=== PATIENT | female | born 1980 | race Two or more races ===

== ENCOUNTER → 2018-10-21 | Outpatient (CLI) | payer MEDICAID ==
--- NOTE | 2018-10-21 13:55 | RADIOLOGY REPORT (SQ) ---
EXAM DESCRIPTION: U/S [id number] TRNABD 1GES W/ODOP COMPLETED DATE/TIME: 10/21/2018 1:36 pm REASON FOR STUDY: ENCTR FOR SUPERVISION OF OTHER NORMAL , 1ST TRIMESTER (Z34.81) Z34.81 EN COUNTER FOR SUPRVSN OF NORMAL , FIRST TRIM COMPARISON: None. TECHNIQUE: Transabdominal static and realtime grayscale images acquired of the pelvis. Additional se lected spectral and color Doppler images recorded. All images stored on PACs. [facility] [place] Not available. CLINICAL DATES: ARLENE: 05/03/2019. EGA: 12 weeks 2 days LIMITATIONS: None. FINDINGS: FETUS: Single Living intrauterine . ULTRASOUND EGA: 13 weeks 2 days ULTRASOUND ARLENE: 04/26/2019 EFW: Not applicable less than 20 weeks. CRL: 7.0 cm FHR: 160 beats per minute. SURVEY: No visualized anomalies. AMNIOTIC FLUID: Adequate amount. PLACENTA: Not yet developed due to early gestation. SUBCHORIONIC BLEED: No. SIZE OF BLEED: Not applicable. UTERUS: The uterus measures 12.1 x 11.4 x 9.8 cm. No masses. No anomalies. CERVICAL LENGTH: 2.2 cm Closed. RIGHT ADNEXA: Not visualized due to overlying bowel gas. LEFT ADNEXA: Not visualized due to overlying bowel gas. FREE FLUID: None. OTHER: No other significant finding. IMPRESSION: LIVING INTRAUTERINE . EGA: 13 weeks 2 days Trimester of : First - 0 to 13 weeks. TECHNICAL DOCUMENTATION: JOB ID: [id number] [employer]- All Rights Reserved rev Reading location - IP/workstation name: [email or web address]
== END ==
LOC: RAD 12:49
PROVIDERS: ATTEND Midwife
DX: Z34.81 Encounter for supervision of other normal pregnancy, first trimester (principal)
CPT/HCPCS: 76801

== ENCOUNTER 2018-10-29 08:25 | Emergency (ER) | payer MEDICAID ==
[2018-10-29 09:38] LABS: APPEARANCE,URINE SLIGHTLY-CLOUDY; BILIRUBIN,URINE NEGATIVE (NEGATIVE); COLOR,URINE YELLOW; GLUCOSE, URINE NEGATIVE (NEGATIVE); KETONES,URINE NEGATIVE (NEGATIVE); LEUKOCYTE ESTERASE,URINE NEGATIVE (NEGATIVE); NITRITE,URINE NEGATIVE (NEGATIVE); PROTEIN,URINE NEGATIVE (NEGATIVE); URINE SPECIFIC GRAVITY 1.012; UROBILINOGEN,URINE NEGATIVE mg/dL (<2.0)
--- NOTE | 2018-10-29 10:18 | ER Document Report ---
ED General - General Chief Complaint: Abdominal Pain Stated Complaint: ABDOMINAL PAIN Time Seen by Provider: 10/29/18 09:55 Primary Care Provider: DONALD MANZO MD [ACTIVE STAFF] - Follow up in 3-5 days (or sooner if needed) Mode of Arrival: Ambulatory Information source: Patient TRAVEL OUTSIDE OF THE [place] IN LAST 30 DAYS: No - HPI Notes: 38-year-old female 3 para 3 who is approximately 14 weeks with her child presents to the ED for concerns of suprapubic pain, reports burning with urination x 9 hours ago. Last bowel movement was yesterday, was seen by her TRUST MANAGER ASSISTANT at the health department times 4 days ago, patient was concerned because baby's heart rate cannot be auscultated at that time, pt stated that OBGYN was not concerned. Patient did have a bowel movement this morning, was firm. No melena. pt is taking prenatals. Denies any fevers or chills, no nausea or vomiting, no diarrhea. No rashes. Recent travel, no new medications no new foods. Denies any vaginal bleeding or pelvic pain. No chest pain or shortness of breath, no bowel or bladder dysfunction, no no weakness, speech changes, neck pain, sore throat. Patient states they did check a urinalysis times 4 days ago, did not show any abnormalities however patient's symptoms did not start until yesterday. She did have an appendectomy as well as 2 action within the last 6 years. - Related Data Allergies/Adverse Reactions: oxycodone [Oxycodone] Allergy (Verified 10/29/18 08:26) Past Medical History - General Information source: Patient, Relative - Social History Smoking Status: Current Some Day Smoker Chew tobacco use (# tins/day): No Frequency of alcohol use: None Drug Abuse: None Family History: Reviewed & Not Pertinent Patient has suicidal ideation: No Patient has homicidal ideation: No Renal/ Medical History: Denies: Hx Peritoneal Dialysis Past Surgical History: Reports: Hx Breast Surgery - reduction 02/12/12, Hx Section - X 2 Review of Systems - Review of Systems Constitutional: No symptoms reported EENT: No symptoms reported Cardiovascular: No symptoms reported Respiratory: No symptoms reported Gastrointestinal: See HPI Genitourinary: No symptoms reported Female Genitourinary: No symptoms reported Musculoskeletal: No symptoms reported Skin: No symptoms reported Hematologic/Lymphatic: No symptoms reported Neurological/Psychological: No symptoms reported Physical Exam - Vital signs Vitals: Temp Pulse Resp BP Pulse Ox 97.8 F 82 18 130/72 H 98 10/29/18 08:30 10/29/18 08:30 10/29/18 08:30 10/29/18 08:30 10/29/18 08:30 - Notes Notes: PHYSICAL EXAMINATION: GENERAL: Well-appearing, well-nourished and in no acute distress. HEAD: Atraumatic, normocephalic. EYES: Pupils equal round and reactive to light, extraocular movements intact, conjunctiva are normal. ENT: Nares patent, oropharynx clear without exudates. Moist mucous membranes. NECK: Normal range of motion, supple without lymphadenopathy LUNGS: Breath sounds clear to auscultation bilaterally and equal. No wheezes rales or rhonchi. HEART: Regular rate and rhythm without murmurs ABDOMEN: Soft, nontender, nondistended abdomen. fundas proximal to suprapubic area No guarding, no rebound. No masses appreciated. suprapubic pain, no cva tenderness bilaterally Female : deferred Musculoskeletal: Normal range of motion, no pitting or edema. No cyanosis. NEUROLOGICAL: Cranial nerves grossly intact. Normal speech, normal gait. Normal sensory, motor exams PSYCH: Normal mood, normal affect. SKIN: Warm, Dry, normal turgor, no rashes or lesions noted. Course - Re-evaluation Re-evalutation: 10/29/18 12:05 Afebrile vitals stable no distress, patient's ECG well over 86,000, urinalysis negative for UTI, no proteinuria, hematuria or ketones, however patient is symptomatic for cystitis. . heart tones 150's. cbc, cmp, urinalysis unremarkable per patient appears to be symptomatic with dysuria. Patient eating and drinking without issues, on reevaluation patient states she continues to feel fine, was mostly concerned about will do not being able to find heart tones 4 days ago TRUST MANAGER ASSISTANT appointment at health department. Pt deferred vaginal exam. patient has been tolerating oral hydration while in ED. Discussed with patient to follow-up with TRUST MANAGER ASSISTANT within the next 3-5 days, she experiences any fevers, vaginal bleeding, vaginal pain, pelvic pain, abdominal pain, or worsening symptoms to return to the ED immediately. After performing a Medical Screening Examination, I estimate there is LOW risk for ACUTE APPENDICITIS, BOWEL OBSTRUCTION, ACUTE CHOLECYSTITIS, PERFORATED DIVERTICULITIS, INCARCERATED HERNIA, PANCREATITIS, PELVIC INFLAMMATORY DISEASE, PERFORATED ULCER, ECTOPIC , or TUBO-OVARIAN ABSCESS, thus I consider the discharge disposition reasonable. Also, there is no evidence or peritonitis, sepsis, or toxicity. I have reevaluated this patient multiple times and no significant life threatening changes are noted. The patient and I have discussed the diagnosis and risks, and we agree with discharging home with close follow-up with the understanding that symptoms and presentations can change. We also discussed returning to the Emergency Department immediately if new or worsening symptoms occur. We have discussed the symptoms which are most concerning (e.g., bloody stool, fever, changing or worsening pain, vomiting) that necessitate immediate return. All questions and concerns answered by this provider. - Vital Signs Vital signs: Temp Pulse Resp BP Pulse Ox 97.8 F 83 17 128/77 H 99 10/29/18 12:54 10/29/18 12:54 10/29/18 12:54 10/29/18 12:54 10/29/18 12:54 - Laboratory Result Diagrams: 10/29/18 10:30 10/29/18 10:30 Laboratory results interpreted by me: 10/29/18 10/29/18 10:30 10:30 Hgb 11.9 L Hct 34.6 L MCV 76 L MCH 26.1 L RDW 14.6 H Chloride 109 H BUN 6 L Creatinine 0.49 L ALT < 6 L Beta HCG, Quant 59719.00 H Discharge - Discharge Clinical Impression: Microcytic anemia, , Dysuria Condition: Stable Disposition: HOME, SELF-CARE Instructions: ([facility]) Additional Instructions: If symptomatic for this cystitis, will treat empirically with antibiotics, heart tones today auscultated and is a healthy rate. Continue taking vitamins. Follow-up with TRUST MANAGER ASSISTANT within 3-5 days or sooner if needed. Increase oral hydration. If any symptoms recur, fever, chills, abdominal pain, vomiting, vaginal pain, vaginal bleeding diarrhea, etc, return to the ED immediately. Diet. Take antibiotics for 3 days, increase oral hydration Return immediately for any new or worsening symptoms. Follow up with primary care provider, call tomorrow to make followup appointment. Prescriptions: Nitrofurantoin Macrocrystal [Macrodantin] 100 mg PO BID #6 capsule Forms: Return to Work Referrals: DONALD MANZO MD [ACTIVE STAFF] - Follow up in 3-5 days (or sooner if needed)
[2018-10-29 10:49] LABS: ABSOLUTE EOSINOPHILS # (AUTO) 0.1 10^3/uL (0.0-0.6); ABSOLUTE LYMPHOCYTES (AUTO) 1.3 10^3/uL (0.5-4.7); ABSOLUTE MONOCYTES (AUTO) 0.5 10^3/uL (0.1-1.4); ABSOLUTE NEUT (AUTO) 6.2 10^3/uL (1.7-8.2); BASOPHILS % (AUTO) 0.1 % (0-2); EOSINOPHILS % (AUTO) 0.9 % (0-6); HEMATOCRIT 34.6 % (36.0-47.0); HEMOGLOBIN 11.9 g/dL (12.0-15.5); LYMPHOCYTES % (AUTO) 16.1 % (13-45); MEAN CORPUSCULAR HEMOGLOBIN 26.1 pg (27.0-33.4); MEAN CORPUSCULAR HGB CONC 34.5 g/dL (32.0-36.0); MEAN CORPUSCULAR VOLUME 76 fl (80-97); MONOCYTES % (AUTO) 6.1 % (3-13); PLATELET COUNT 255 10^3/uL (150-450); RED BLOOD COUNT 4.57 10^6/uL (3.72-5.28); RED CELL DISTRIBUTION WIDTH 14.6 % (11.5-14.0); SEGMENTED NEUTROPHILS % (AUTO) 76.8 % (42-78); TOTAL CELLS COUNTED % (AUTO) 100 %; WHITE BLOOD COUNT 8.1 10^3/uL (4.0-10.5)
[2018-10-29 11:15] LABS: ALANINE AMINOTRANSFERASE < 6 U/L (9-52); ALBUMIN 3.8 g/dL (3.5-5.0); ALKALINE PHOSPHATASE 67 U/L (38-126); ANION GAP 7 (5-19); ASPARTATE AMINO TRANSFERASE 15 U/L (14-36); BILIRUBIN,DIRECT 0.2 mg/dL (0.0-0.4); BILIRUBIN,TOTAL 0.3 mg/dL (0.2-1.3); BLOOD UREA NITROGEN 6 mg/dL (7-20); CALCIUM 9.7 mg/dL (8.4-10.2); CARBON DIOXIDE 22 mmol/L (22-30); CHLORIDE 109 mmol/L (98-107); GLUCOSE 86 mg/dL (75-110); LIPASE 55.8 U/L (23-300); POTASSIUM 4.3 mmol/L (3.6-5.0); SODIUM 138.4 mmol/L (137-145); TOTAL PROTEIN 6.9 g/dL (6.3-8.2)
[2018-10-29 12:56] VITALS: BP 128/77
== END 2018-10-29 12:56 | disposition home or self-care (01) ==
LOC: ER 08:25
DX: O99.012 Anemia complicating pregnancy, second trimester (principal); D50.9 Iron deficiency anemia, unspecified; O26.892 Other specified pregnancy related conditions, second trimester; R30.0 Dysuria; R10.9 Unspecified abdominal pain; R10.30 Lower abdominal pain, unspecified; R30.9 Painful micturition, unspecified; O99.332 Smoking (tobacco) complicating pregnancy, second trimester; Z3A.14 14 weeks gestation of pregnancy
CPT/HCPCS: 36415; 80053; 81001; 83690; 84702; 85025; 87086; 99284

== ENCOUNTER 2019-01-05 16:03 | Outpatient (CLI) | payer MEDICAID ==
[2019-01-05 16:37] LABS: APPEARANCE,URINE SLIGHTLY-CLOUDY; BILIRUBIN,URINE NEGATIVE (NEGATIVE); COLOR,URINE YELLOW; GLUCOSE, URINE NEGATIVE (NEGATIVE); KETONES,URINE NEGATIVE (NEGATIVE); LEUKOCYTE ESTERASE,URINE SMALL (NEGATIVE); NITRITE,URINE NEGATIVE (NEGATIVE); PROTEIN,URINE NEGATIVE (NEGATIVE); URINE SPECIFIC GRAVITY 1.008; UROBILINOGEN,URINE NEGATIVE mg/dL (<2.0)
[2019-01-05 16:39] LABS: ABSOLUTE EOSINOPHILS # (AUTO) 0.1 10^3/uL (0.0-0.6); ABSOLUTE LYMPHOCYTES (AUTO) 1.4 10^3/uL (0.5-4.7); ABSOLUTE MONOCYTES (AUTO) 0.5 10^3/uL (0.1-1.4); ABSOLUTE NEUT (AUTO) 8.1 10^3/uL (1.7-8.2); BASOPHILS % (AUTO) 0.1 % (0-2); EOSINOPHILS % (AUTO) 0.8 % (0-6); HEMATOCRIT 34.8 % (36.0-47.0); HEMOGLOBIN 11.8 g/dL (12.0-15.5); LYMPHOCYTES % (AUTO) 13.6 % (13-45); MEAN CORPUSCULAR HEMOGLOBIN 25.9 pg (27.0-33.4); MEAN CORPUSCULAR HGB CONC 33.8 g/dL (32.0-36.0); MEAN CORPUSCULAR VOLUME 77 fl (80-97); MONOCYTES % (AUTO) 4.5 % (3-13); PLATELET COUNT 299 10^3/uL (150-450); RED BLOOD COUNT 4.54 10^6/uL (3.72-5.28); RED CELL DISTRIBUTION WIDTH 14.4 % (11.5-14.0); TOTAL CELLS COUNTED % (AUTO) 100 %
[2019-01-05 16:49] LABS: URINE BARBITURATES SCREEN NEGATIVE; URINE COCAINE SCREEN NEGATIVE; URINE MARIJUANA (THC) SCREEN NEGATIVE; URINE METHADONE SCREEN NEGATIVE
[2019-01-05 16:51] LABS: URINE AMPHETAMINES SCREEN NEGATIVE; URINE BENZODIAZEPINES SCREEN NEGATIVE
[2019-01-05 16:52] LABS: URINE PHENCYCLIDINE SCREEN NEGATIVE
== END 2019-01-05 17:13 | disposition home or self-care (01) ==
LOC: LC 16:03
PROVIDERS: ATTEND Obstetrics & Gynecology
PROC: 4A1HXCZ Monitoring of Products of Conception, Cardiac Rate, External Approach (ICD-10-PCS; principal; 2019-01-05)
DX: O47.02 False labor before 37 completed weeks of gestation, second trimester (principal); Z3A.24 24 weeks gestation of pregnancy
CPT/HCPCS: 36415; 80307; 81001; 85025

== ENCOUNTER → 2019-02-26 | Outpatient (CLI) | payer MEDICAID ==
[2019-02-26 12:17] LABS: APPEARANCE,URINE SLIGHTLY-CLOUDY; BILIRUBIN,URINE NEGATIVE (NEGATIVE); COLOR,URINE YELLOW; GLUCOSE, URINE NEGATIVE (NEGATIVE); KETONES,URINE TRACE mg/dL (NEGATIVE); LEUKOCYTE ESTERASE,URINE LARGE (NEGATIVE); NITRITE,URINE NEGATIVE (NEGATIVE); PROTEIN,URINE NEGATIVE (NEGATIVE); URINE SPECIFIC GRAVITY 1.011; UROBILINOGEN,URINE NEGATIVE mg/dL (<2.0)
[2019-02-26 12:40] LABS: URINE AMPHETAMINES SCREEN NEGATIVE; URINE BARBITURATES SCREEN NEGATIVE; URINE BENZODIAZEPINES SCREEN NEGATIVE; URINE COCAINE SCREEN NEGATIVE; URINE MARIJUANA (THC) SCREEN NEGATIVE; URINE METHADONE SCREEN NEGATIVE; URINE PHENCYCLIDINE SCREEN NEGATIVE
--- NOTE | 2019-02-26 14:34 | Non Stress Test Report ---
Non Stress Test Datetime Report Generated by CPN: 02/26/2019 14:34 DEMOGRAPHIC EGA NST: 31.4 INDICATION Indication for Study: Decreased Movement VITAL SIGNS Temperature - NST: 98.1 MONITORING Monitor Explained: Monitor Explained; Test Explained; Patient Verbalized Understanding Time on Monitor: 02/26/2019 11:50 Time off Monitor: 02/26/2019 13:11 NST Duration: 81 NST INTERVENTIONS NST Interventions: PO Hydration; Reposition Patient BABY A: [id number] BABY A Movement : Present Contraction Frequency : 0 FHR Baseline : 140 Accelerations : 15X15 Decelerations : None Variability : Moderate 6-25bpm NST Review: Meets Criteria for Reactive NST NST Review and Verified By : Dominga Ocasio C NST Results: Reactive NST REPORT Report Trigger: Send Report
== END ==
LOC: LC 11:42
PROVIDERS: ATTEND Obstetrics & Gynecology
PROC: 4A1HXCZ Monitoring of Products of Conception, Cardiac Rate, External Approach (ICD-10-PCS; principal; 2019-02-26)
DX: O36.8130 Decreased fetal movements, third trimester, not applicable or unspecified (principal); Z3A.31 31 weeks gestation of pregnancy
CPT/HCPCS: 59025; 80307; 81001

== ENCOUNTER 2019-03-19 18:41 | Outpatient (CLI) | payer MEDICAID | END 2019-03-19 19:57 | disposition home or self-care (01) | LOC: LC 18:41 | PROVIDERS: ATTEND Obstetrics & Gynecology | PROC: 4A1HXCZ Monitoring of Products of Conception, Cardiac Rate, External Approach (ICD-10-PCS; principal; 2019-03-19) | DX: O09.523 Supervision of elderly multigravida, third trimester (principal); Z3A.34 34 weeks gestation of pregnancy | CPT/HCPCS: 59025 ==

== ENCOUNTER → 2019-03-22 | Outpatient (CLI) | payer MEDICAID ==
--- NOTE | 2019-03-22 18:52 | Non Stress Test Report ---
Non Stress Test Datetime Report Generated by CPN: 03/22/2019 18:52 DEMOGRAPHIC EGA NST: 35.0 EGA NST: 34.4 INDICATION Indication for Study: Ordered by Provider Indication for Study: Ordered by Provider VITAL SIGNS Temperature - NST: 98.3 Pulse - NST: 78 RESP - NST: 18 NBPSYS NST: 115 NBPDIA NST: 67 MONITORING Monitor Explained: Monitor Explained; Test Explained; Patient Verbalized Understanding Monitor Explained: Monitor Explained; Test Explained; Patient Verbalized Understanding Time on Monitor: 03/22/2019 17:26 Time on Monitor: 03/19/2019 19:15 Time off Monitor: 03/22/2019 18:26 Time off Monitor: 03/19/2019 19:50 NST Duration: 60 NST Duration: 35 NST INTERVENTIONS NST Interventions: PO Hydration; Reposition Patient NST Interventions: PO Hydration Physician Notified NST: C LANDY, CNM REVIEWED STRIP Physician Notified NST: Younger BABY A: [id number] BABY A Movement : Present Movement : Present Contraction Frequency : rare Contraction Frequency : Occasional FHR Baseline : 150 FHR Baseline : 150 Accelerations : 15X15 Accelerations : 15X15 Decelerations : None Decelerations : None Variability : Moderate 6-25bpm Variability : Moderate 6-25bpm NST Review: Meets Criteria for Reactive NST NST Review: Meets Criteria for Reactive NST NST Review and Verified By : Karley Fields RN NST Review and Verified By : DEEPALI Man NST Results: Reactive NST Results: Reactive NST REPORT Report Trigger: Send Report
== END ==
LOC: LC 17:13
PROVIDERS: ATTEND Obstetrics & Gynecology
DX: O09.523 Supervision of elderly multigravida, third trimester (principal); Z3A.35 35 weeks gestation of pregnancy

== ENCOUNTER 2019-04-07 07:35 | Inpatient (IN) | payer MEDICAID ==
[2019-04-07] MEDS ORDERED: CEFAZOLIN 1 GM/D5W RTU 2 GM/100 ML RTUPB IV ONE (07:49)
[2019-04-07] MEDS ORDERED: CITRIC ACID/SODIUM CITRATE ORAL SOLN 15 ML UDCUP ONE (07:49)
[2019-04-07] MEDS ORDERED: OXYTOCIN 10 UNIT/ML VIAL ONE (08:08)
[2019-04-07] MEDS ORDERED: ONDANSETRON HCL INJ/PF 4 MG/2 ML SDV ONE (08:09)
[2019-04-07] MEDS ORDERED: OXYTOCIN/NORMAL SALINE 20 UNIT/1,000 ML RTUINJ ONE (08:09)
[2019-04-07] MEDS ORDERED: MORPHINE SULFATE 10 MG/ML INJ ONE (08:09)
[2019-04-07] MEDS ORDERED: MIDAZOLAM 2 MG/2 ML INJ ONE (08:09)
[2019-04-07 08:11] LABS: ABSOLUTE EOSINOPHILS # (AUTO) 0.1 10^3/uL (0.0-0.6); ABSOLUTE LYMPHOCYTES (AUTO) 3.7 10^3/uL (0.5-4.7); ABSOLUTE MONOCYTES (AUTO) 0.7 10^3/uL (0.1-1.4); ABSOLUTE NEUT (AUTO) 8.3 10^3/uL (1.7-8.2); BASOPHILS % (AUTO) 0.3 % (0-2); HEMATOCRIT 40.5 % (36.0-47.0); HEMOGLOBIN 13.6 g/dL (12.0-15.5); LYMPHOCYTES % (AUTO) 28.9 % (13-45); MEAN CORPUSCULAR HEMOGLOBIN 25.7 pg (27.0-33.4); MEAN CORPUSCULAR HGB CONC 33.5 g/dL (32.0-36.0); MEAN CORPUSCULAR VOLUME 77 fl (80-97); MONOCYTES % (AUTO) 5.4 % (3-13); PLATELET COUNT 281 10^3/uL (150-450); RED BLOOD COUNT 5.28 10^6/uL (3.72-5.28); SEGMENTED NEUTROPHILS % (AUTO) 64.4 % (42-78); TOTAL CELLS COUNTED % (AUTO) 100 %; WHITE BLOOD COUNT 12.9 10^3/uL (4.0-10.5)
[2019-04-07] MEDS ORDERED: SIMETHICONE 80 MG TAB.CHEW PO PRN (10:07)
[2019-04-07] MEDS ORDERED: ACETAMINOPHEN 1,000 MG/100 ML RTUPB IV PRN (10:07)
[2019-04-07] MEDS ORDERED: MEASLES,MUMPS&RUBELLA VACC/PF 0.5 ML VIAL SUBCUT PRN (10:07)
[2019-04-07] MEDS ORDERED: OXYTOCIN/NORMAL SALINE 20 UNIT/1,000 ML RTUINJ IV PRN (10:07)
[2019-04-07] MEDS ORDERED: ACETAMINOPHEN 325 MG TABLET PO PRN (10:07)
[2019-04-07] MEDS ORDERED: HYDROMORPHONE HCL INJ/PF 2 MG/ML AMPULE IV PRN (10:07)
[2019-04-07] MEDS ORDERED: PROMETHAZINE HCL INJ 25 MG/1 ML VIAL IV PRN (10:07)
[2019-04-07] MEDS ORDERED: DIPH/PERTUSS(ACELL)/TETANUS VAC/PF 0.5 ML SYR (>=10YO) IM PRN (10:07)
[2019-04-07] MEDS ORDERED: HYDROCODONE/ACETAMINOPHEN 5-325 MG TABLET PO PRN (10:09)
--- NOTE | 2019-04-07 10:10 | Brief Operative Note ---
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 there was 2cm area of fallopian tube identifiable proximally where filschie clips could be placed but due to scar tissue they slipped from the fallopian tube. Therefore fimbria was resected distally on the right to complete tubal sterilization. VFI at 0839, Apgars 8/9, weight 2995g (6#10oz) COMPLICATIONS: abdominoplasty scar, abnormal right fallopian tube ESTIMATED BLOOD LOSS: 685 TISSUE REMOVED OR ALTERED: portion of left fallopian tube, distal portion of right fallopian tube TECHNICAL PROCEDURE: Repeat Section, [place] tubal ligation on left, Filschie clip with Fimbria resection on right.
[2019-04-07] MEDS ORDERED: HYDROMORPHONE HCL INJ/PF 2 MG/ML AMPULE ONE (10:11)
[2019-04-07] MEDS ORDERED: ACETAMINOPHEN 1,000 MG/100 ML RTUPB IV ONE (10:34)
[2019-04-07] MEDS ORDERED: PROMETHAZINE HCL INJ 25 MG/1 ML VIAL ONE (11:03)
--- NOTE | 2019-04-07 11:56 | Delivery Summary ---
Del Sum A-C Datetime Report Generated by CPN: 04/07/2019 11:55 DELIVERY PERSONNEL DELIVERY PERSONNEL: [id number] Delivery Doctor:: Radha Bailey MD Anesthesiologist:: Guillaume Howell MD GORE MAKER:: Morales Rueda CRNA Courtesy Clerk:: Andie Babcock RN Neonatal Nurse Practitioner:: Ghislaine Reina, SPEED BELT SANDER District Plant Supervisor/FEDERAL AGENT: [facility] District Plant Supervisor/FEDERAL AGENT: [facility] Additional Personnel: : Maru Chapman RN MATERNAL INFORMATION Delivery Anesthesia: Spinal Maternal Complications: None LABOR SUMMARY EDC: 04/26/2019 00:00 No. Babies in Womb: 1 Attempted: No LABOR INFORMATION Reason for Induction: Not Applicable Onset of Labor: 04/07/2019 06:00 Oxytocin: N/A Group B Beta Strep: Negative Steroids Given: None Reason Steroids Not Administered: Not Applicable MEMBRANES Membranes Rupture Method: Spontaneous Rupture of Membranes: 04/07/2019 06:00 Length of Rupture (hr): 2.65 Amniotic Fluid Color: Clear Amniotic Fluid Amount: Small Amniotic Fluid Odor: Normal STAGES OF LABOR Stage 3 hr: 0 Stage 3 min: 1 Total Time in Labor hr: 2 Total Time in Labor min: 40 VAGINAL DELIVERY Episiotomy: None Laceration #1: None Laceration Extension #1: N/A Laceration Repair: Not Applicable Sponge Count Correct: N/A Sharps Count Correct: N/A CSECTION DELIVERY Primary Indication: Other Other Primary Indication: Repeat x2 CSection Urgency: Non-Scheduled CSection Incidence: Repeat Labor: Labor Elective: Nonelective CSection Incision: Lower Uterine Transverse Sterilization Procedure: Plover; Ring and Clip BABY A INFORMATION Delivery Date/Time: 04/07/2019 08:39 Method of Delivery: Born in Route : No : N/A Forceps: N/A Vacuum Extraction: N/A Shoulder Dystocia : No PRESENTATION/POSITION BABY A Presentation: Cephalic Cephalic Presentation: Vertex Breech Presentation: N/A PLACENTA INFORMATION BABY A Placenta Delivery Time : 04/07/2019 08:40 Placenta Method of Delivery: Manual Removal Placenta Status: Delivered SCORES BABY A Heart Rate 1 min: >100 bpm Resp Effort 1 min: Good Cry Reflex Irritability 1 min: Cough or Sneeze or Pulls Away Muscle Tone 1 min: Some Flexion of Extremities Color 1 min: Body [place], Extremities Blue Resuscitation Effort 1 min: Tactile Stimulation SCORE 1 MIN: 8 Heart Rate 5 min: >100 bpm Resp Effort 5 min: Good Cry Reflex Irritability 5 min: Cough or Sneeze or Pulls Away Muscle Tone 5 min: Active Motion Color 5 min: Body [place], Extremities Blue Resuscitation Effort 5 min: Tactile Stimulation SCORE 5 MIN: 9 INFANT INFORMATION BABY A Gestational Age at Delivery: 37.2 Gestational Status: Early Term- 37- 38.6 Weeks Infant Outcome : Liveborn Condition : Stable Sex: Female IDENTIFICATION BABY A Verification Date/Time: 04/07/2019 08:41 ID Band Number: [id number] Mother's Name Verified: Yes Infant RN Verifying : Silvia Babcock RN, CPatricia Chapman RN WEIGHT/LENGTH BABY A Infant Birthweight (gm): 2995 Infant Weight (lb): 6 Weight (oz): 10 Infant Length (in): 19.50 Infant Length (cm): 49.53 CORD INFORMATION BABY A No. Cord Vessels: 3 Nuchal Cord : N/A Cord Blood Taken: Yes-For Eval (Mom's Blood Type - or O+) Infant Suction: None; Mouth BABY B INFORMATION : N/A
[2019-04-07] MEDS: HYDROCODONE/ACETAMINOPHEN 5-325 MG TABLET PO PRN ×2 (12:43→20:49)
[2019-04-07] MEDS: KETOROLAC TROMETHAMINE INJ/PF 30 MG/1 ML SDV IV SCH ×2 (13:45→21:55)
[2019-04-07 16:00] LABS: APPEARANCE,URINE CLEAR; BILIRUBIN,URINE NEGATIVE (NEGATIVE); COLOR,URINE YELLOW; GLUCOSE, URINE NEGATIVE (NEGATIVE); KETONES,URINE NEGATIVE (NEGATIVE); LEUKOCYTE ESTERASE,URINE NEGATIVE (NEGATIVE); NITRITE,URINE NEGATIVE (NEGATIVE); PROTEIN,URINE NEGATIVE (NEGATIVE); URINE SPECIFIC GRAVITY 1.016; UROBILINOGEN,URINE NEGATIVE mg/dL (<2.0)
[2019-04-07 16:17] LABS: URINE AMPHETAMINES SCREEN NEGATIVE; URINE BARBITURATES SCREEN NEGATIVE; URINE COCAINE SCREEN NEGATIVE; URINE MARIJUANA (THC) SCREEN NEGATIVE; URINE METHADONE SCREEN NEGATIVE; URINE PHENCYCLIDINE SCREEN NEGATIVE
[2019-04-07 16:27] LABS: URINE BENZODIAZEPINES SCREEN UNCONFIRMED POSITIVE
[2019-04-07] MEDS ORDERED: DIPHENHYDRAMINE HCL 50 MG/ML VIAL ONE (16:56)
[2019-04-07] MEDS: DOCUSATE SODIUM 100 MG CAPSULE PO SCH (16:59)
[2019-04-07] MEDS ORDERED: DIPHENHYDRAMINE HCL 50 MG CAPSULE PO ONE (17:02)
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
[2019-04-08 03:38] LABS: HEMATOCRIT 32.5 % (36.0-47.0); MEAN CORPUSCULAR HEMOGLOBIN 25.8 pg (27.0-33.4); MEAN CORPUSCULAR HGB CONC 33.6 g/dL (32.0-36.0); MEAN CORPUSCULAR VOLUME 77 fl (80-97); PLATELET COUNT 226 10^3/uL (150-450); RED BLOOD COUNT 4.24 10^6/uL (3.72-5.28); RED CELL DISTRIBUTION WIDTH 15.2 % (11.5-14.0); WHITE BLOOD COUNT 13.3 10^3/uL (4.0-10.5)
[2019-04-08 03:40] LABS: HEMOGLOBIN 10.9 g/dL (12.0-15.5)
[2019-04-08] MEDS: HYDROCODONE/ACETAMINOPHEN 5-325 MG TABLET PO PRN ×2 (04:51→13:11)
[2019-04-08] MEDS: IBUPROFEN 800 MG TABLET PO SCH ×4 (05:14→17:34)
[2019-04-08] MEDS: KETOROLAC TROMETHAMINE INJ/PF 30 MG/1 ML SDV IV SCH (05:16)
--- NOTE | 2019-04-08 09:22 | PDOC PROGRESS REPORT ---
Subjective-OB Progress Note for:: 04/08/19 Physical Exam (OB) Vital Signs: Temp Pulse Resp BP Pulse Ox 98.3 F 74 16 121/68 97 04/08/19 04:45 04/08/19 04:45 04/08/19 04:45 04/08/19 04:45 04/08/19 04:45 Intake & Output 04/07/19 04/08/19 04/09/19 06:59 06:59 06:59 Output Total 1850 720 Balance -1850 -720 Weight 86.5 kg - PIH/Pre-Eclampsia DTR's: 1 + Clonus: Negative Headache: Absent Epigastric Pain: No Visual Changes: No - Incision: Well Approximated Closure Type: Steri-Strips - Lochia Lochia Amount: Small 10-25 ml Lochia Color: Rubra/Red - Abdomen Description: Tender, Soft, Round Hernia Present: No Bowel Sounds: Normoactive Flatus Presence: Present Stool: No Fundal Description: Firm, Midline Fundal Height: u/u - u/2 Objective-Diagnostic Laboratory: 04/08/19 03:24 04/07/19 04/08/19 15:28 03:24 WBC 13.3 H RBC 4.24 Hgb 10.9 L D Hct 32.5 L MCV 77 L MCH 25.8 L MCHC 33.6 RDW 15.2 H Plt Count 226 Urine Color YELLOW Urine Appearance CLEAR Urine pH 6.0 Ur Specific [place] 1.016 Urine Protein NEGATIVE Urine Glucose (UA) NEGATIVE Urine Ketones NEGATIVE Urine Blood MODERATE H Urine Nitrite NEGATIVE Ur Leukocyte Esterase NEGATIVE
[2019-04-08] MEDS: PRENATAL VITAMIN W DHA CAPSULE PO SCH (09:35)
[2019-04-08] MEDS: DOCUSATE SODIUM 100 MG CAPSULE PO SCH ×2 (09:35→17:34)
[2019-04-09] MEDS: HYDROCODONE/ACETAMINOPHEN 5-325 MG TABLET PO PRN ×2 (00:35→04:48)
[2019-04-09] MEDS: IBUPROFEN 800 MG TABLET PO SCH ×3 (00:36→12:28)
--- NOTE | 2019-04-09 09:50 | PDOC DISCHARGE SUMMARY ---
Final Diagnosis Discharge Date: 04/09/19 - POD #2, doing well, desires to go home, s/p Rpt C- section w/ BTL. O+, Rubella Immune, - Final Diagnosis (1) Normal course Is this a current diagnosis for this admission?: Yes (2) S/P repeat low transverse Is this a current diagnosis for this admission?: Yes (3) SROM (spontaneous rupture of membranes) Is this a current diagnosis for this admission?: Yes (4) Sterilization Is this a current diagnosis for this admission?: Yes Discharge Data - Discharge Medication Prescriptions: Hydrocodone/Acetaminophen [Wayne 5-325 mg Tablet] 1 tab PO Q4HP PRN #30 tablet PRN Reason: Pain Scale Of 3 Ibuprofen [Motrin 800 mg Tablet] 800 mg PO Q6 #60 tablet Home Medications: No122/Iron/Folic Acid [ Multi Tablet] 1 each PO DAILY 01/05/19 Hydrocodone/Acetaminophen [Wayne 5-325 mg Tablet] 1 tab PO Q4HP PRN #30 tablet 04/09/19 Ibuprofen [Motrin 800 mg Tablet] 800 mg PO Q6 #60 tablet 04/09/19 Reason(s) for Admission: Ceasarean Section-Repeat Procedures: Ultrasound Intrapartum Procedure(s): : Low Cervical, Transverse, Tubal Ligation - Diagnosis Test Laboratory: Temp Pulse Resp BP Pulse Ox 98.2 F 58 L 18 142/89 H 98 04/09/19 07:39 04/09/19 07:39 04/09/19 07:39 04/09/19 07:39 04/09/19 07:39 04/07/19 04/07/19 04/08/19 07:57 15:28 03:24 RBC 5.28 4.24 Hgb 13.6 10.9 L D Hct 40.5 32.5 L Urine Opiates Screen UNCONFIRMED POSITIVE - Discharge information/Instructions Discharge Activity: Activity As Tolerated, No Driving, No Lifting Over 10 Pounds, Pelvic Rest Discharge Diet: As Tolerated, Regular Disposition: HOME, SELF-CARE Follow up with: [facility] in: 1, Weeks - for incision check
[2019-04-09] MEDS: PRENATAL VITAMIN W DHA CAPSULE PO SCH (09:58)
[2019-04-09] MEDS: DOCUSATE SODIUM 100 MG CAPSULE PO SCH (09:58)
[2019-04-09 11:17] VITALS: BP 125/85
== END 2019-04-09 13:12 | disposition home or self-care (01) | DRG 785 ==
LOC: LC 07:35 → LR 07:56 → 2N 12:15
PROVIDERS: ADMIT Student in an Organized Health Care Education/Training Program; ATTEND Student in an Organized Health Care Education/Training Program
PROC: 10D00Z1 Extraction of Products of Conception, Low, Open Approach (ICD-10-PCS; principal; 2019-04-07)
PROC: 0U570ZZ Destruction of Bilateral Fallopian Tubes, Open Approach (ICD-10-PCS; 2019-04-07)
PROC: 4A1HX4Z Monitoring of Products of Conception, Cardiac Electrical Activity, External Approach (ICD-10-PCS; 2019-04-07)
DX: O34.211 Maternal care for low transverse scar from previous cesarean delivery (principal); N85.8 Other specified noninflammatory disorders of uterus; Z3A.37 37 weeks gestation of pregnancy; Z37.0 Single live birth; O99.820 Streptococcus B carrier state complicating pregnancy; O99.343 Other mental disorders complicating pregnancy, third trimester; F43.10 Post-traumatic stress disorder, unspecified; E05.00 Thyrotoxicosis with diffuse goiter without thyrotoxic crisis or storm; Z88.6 Allergy status to analgesic agent; Z87.891 Personal history of nicotine dependence
CPT/HCPCS: 1961; 36415; 80307; 81005; 85025; 85027; 851; 86592; 86850; 86900; 86901; 88302; 94799; J0131; J0690; J1170; J1200; J1885; J2250; J2270; J2405; J2550; J2590; J3490

== ENCOUNTER 2019-11-30 15:58 | Emergency (ER) | payer BC, MEDICAID ==
[2019-11-30] MEDS ORDERED: NORMAL SALINE 1000 ML 1,000 ML IV ONE (16:19)
--- NOTE | 2019-11-30 16:20 | ER Document Report ---
ED Medical Screen (RME) - General Chief Complaint: Flank Pain Stated Complaint: FLANK PAIN/URINARY ISSUES Time Seen by Provider: 11/30/19 16:13 Primary Care Provider: AJAY NOLAN MD [Primary Care Provider] - Follow up as needed Notes: HPI: 39-year-old female presenting to the emergency department complaining of left flank pain, was not sudden onset has progressively worsened hurts to move, also with some burning with urination in the last 24 hours. Has not had a definitive fever or vomiting. Went to urgent care today they sent patient over for further evaluation, urinalysis at the urgent care on dip appears to be negative I have greeted and performed a rapid initial assessment of this patient. A comprehensive ED assessment and evaluation of the patient, analysis of test results and completion of the medical decision making process will be conducted by additional ED providers PHYSICAL EXAMINATION: Moderate tenderness low in the left lower quadrant region on palpation. Mild left CVA tenderness. Mild tachycardia. I have greeted and performed a rapid initial assessment of this patient. A comprehensive ED assessment and evaluation of the patient, analysis of test results and completion of medical decision making process will be conducted by an additional ED providers. TRAVEL OUTSIDE OF THE [place] IN LAST 30 DAYS: No - Related Data Allergies/Adverse Reactions: oxycodone [Oxycodone] Allergy (Verified 11/30/19 16:12) Past Medical History - Social History Chew tobacco use (# tins/day): No Frequency of alcohol use: None Drug Abuse: None Renal/ Medical History: Denies: Hx Peritoneal Dialysis Past Surgical History: Reports: Hx Breast Surgery - reduction 02/12/12, Hx Section - X 2 Physical Exam - Vital signs Vitals: Temp Pulse Resp BP Pulse Ox 98.4 F 75 16 150/97 H 99 11/30/19 16:01 11/30/19 16:01 11/30/19 16:01 11/30/19 16:01 11/30/19 16:01 Course - Vital Signs Vital signs: Temp Pulse Resp BP Pulse Ox 98.4 F 75 16 150/97 H 99 11/30/19 16:01 11/30/19 16:01 11/30/19 16:01 11/30/19 16:01 11/30/19 16:01 Doctor's Discharge - Discharge Referrals: AJAY NOLAN MD [Primary Care Provider] - Follow up as needed
[2019-11-30 16:41] LABS: ABSOLUTE EOSINOPHILS # (AUTO) 0.1 10^3/uL (0.0-0.6); ABSOLUTE LYMPHOCYTES (AUTO) 1.8 10^3/uL (0.5-4.7); ABSOLUTE MONOCYTES (AUTO) 0.3 10^3/uL (0.1-1.4); ABSOLUTE NEUT (AUTO) 4.6 10^3/uL (1.7-8.2); BASOPHILS % (AUTO) 0.4 % (0-2); EOSINOPHILS % (AUTO) 0.9 % (0-6); HEMATOCRIT 38.2 % (36.0-47.0); HEMOGLOBIN 12.9 g/dL (12.0-15.5); LYMPHOCYTES % (AUTO) 26.9 % (13-45); MEAN CORPUSCULAR HEMOGLOBIN 24.7 pg (27.0-33.4); MEAN CORPUSCULAR HGB CONC 33.7 g/dL (32.0-36.0); MEAN CORPUSCULAR VOLUME 73 fl (80-97); MONOCYTES % (AUTO) 4.6 % (3-13); PLATELET COUNT 386 10^3/uL (150-450); RED BLOOD COUNT 5.22 10^6/uL (3.72-5.28); RED CELL DISTRIBUTION WIDTH 15.7 % (11.5-14.0); SEGMENTED NEUTROPHILS % (AUTO) 67.2 % (42-78); TOTAL CELLS COUNTED % (AUTO) 100 %; WHITE BLOOD COUNT 6.8 10^3/uL (4.0-10.5)
[2019-11-30] MEDS ORDERED: HYDROMORPHONE HCL INJ/PF 2 MG/ML AMPULE IV ONE (17:04)
[2019-11-30 17:13] LABS: APPEARANCE,URINE CLEAR; BILIRUBIN,URINE NEGATIVE (NEGATIVE); COLOR,URINE YELLOW; GLUCOSE, URINE NEGATIVE (NEGATIVE); KETONES,URINE NEGATIVE (NEGATIVE); LEUKOCYTE ESTERASE,URINE NEGATIVE (NEGATIVE); NITRITE,URINE NEGATIVE (NEGATIVE); PROTEIN,URINE NEGATIVE (NEGATIVE); URINE SPECIFIC GRAVITY 1.011; UROBILINOGEN,URINE NEGATIVE mg/dL (<2.0)
[2019-11-30 17:24] LABS: ALBUMIN 4.8 g/dL (3.5-5.0); ANION GAP 9 (5-19); BLOOD UREA NITROGEN 9 mg/dL (7-20); CALCIUM 9.2 mg/dL (8.4-10.2); CARBON DIOXIDE 23 mmol/L (22-30); CHLORIDE 107 mmol/L (98-107); GLUCOSE 117 mg/dL (75-110)
[2019-11-30 17:25] LABS: ALKALINE PHOSPHATASE 105 U/L (38-126); ASPARTATE AMINO TRANSFERASE 26 U/L (14-36); BILIRUBIN,TOTAL < 0.1 mg/dL (0.2-1.3); TOTAL PROTEIN 8.5 g/dL (6.3-8.2)
--- NOTE | 2019-11-30 18:19 | RADIOLOGY REPORT (SQ) ---
EXAM DESCRIPTION: CT ABD/PELVIS WITH IV ONLY IMAGES COMPLETED DATE/TIME: 11/30/2019 5:52 pm REASON FOR STUDY: LLq pain COMPARISON: None. TECHNIQUE: CT scan of the abdomen and pelvis performed using helical scanning technique with dynamic intravenous contrast injection. No oral contrast. Images reviewed with lung, soft tissue, and bone windows. Reconstructed coronal and sagittal MPR images reviewed. Delayed images for evaluation of the urinary system also acquired. All images stored on PACS. All CT scanners at this facility use dose modulation, iterative reconstruction, and/or weight based d osing when appropriate to reduce radiation dose to as low as reasonably achievable (ALARA). [facility]: Dose Right [facility]: CareDose [facility]: Dose Right [facility]: Teradose 4D [facility]: DesignMyNight CONTRAST TYPE AND DOSE: contrast/concentration: Isovue 350.00 mg/ml; Total Contrast Delivered: 88.0 ml; Total Saline Delivered: 70.0 ml RENAL FUNCTION: None required. The patient is less than 50 years old. RADIATION DOSE: CT Rad equipment meets quality standard of care and radiation dose reduction techniq ues were employed. CTDIvol: 7.6 - 7.8 mGy. DLP: 840 mGy-cm.. LIMITATIONS: None. FINDINGS: LOWER CHEST: No significant findings. No nodules or infiltrates. LIVER: Normal size. No masses. No dilated ducts. SPLEEN: Normal size. No focal lesions. PANCREAS: No masses. No significant calcifications. No adjacent inflammation or peripancreatic fluid collections. Pancreatic duct not dilated. GALLBLADDER: No identified stones by CT criteria. No inflammatory changes to suggest cholecystitis. ADRENAL GLANDS: No significant masses or asymmetry. RIGHT KIDNEY AND URETER: No solid masses. No significant calcifications. No hydronephrosis or hyd roureter. LEFT KIDNEY AND URETER: No solid masses. No significant calcifications. No hydronephrosis or hydr oureter. AORTA AND VESSELS: No aneurysm. No dissection. Renal arteries, SMA, celiac without stenosis. RETROPERITONEUM: No retroperitoneal adenopathy, hemorrhage or masses. BOWEL AND PERITONEAL CAVITY: No masses or inflammatory changes. No free fluid or peritoneal masses. APPENDIX: Normal. PELVIS: No mass. No free fluid. Normal bladder. ABDOMINAL WALL: No masses. No hernias. BONES: No significant or acute findings. OTHER: No other significant finding. IMPRESSION: NO SIGNIFICANT OR ACUTE FINDING IN THE ABDOMEN OR PELVIS ON CT SCAN WITH IV CONTRAST. TECHNICAL DOCUMENTATION: JOB ID: [id number] Quality ID # [id number]: Final reports with documentation of one or more dose reduction techniques (e.g., Au tomated exposure control, adjustment of the mA and/or kV according to patient size, use of iterative reconstruction technique) 2010 [employer]- All Rights Reserved Reading location - IP/workstation name: [email or web address]
--- NOTE | 2019-11-30 18:42 | ER Document Report ---
ED General - General Chief Complaint: Flank Pain Stated Complaint: FLANK PAIN/URINARY ISSUES Time Seen by Provider: 11/30/19 16:13 Primary Care Provider: AJAY NOLAN MD [ACTIVE STAFF] - Follow up as needed Notes: Patient is a 39-year-old female with no significant past medical history presents to the emergency department with a chief complaint of left flank pain that began about 24 hours ago. She states that it is a sharp pain comes and goes involving the left flank from the left mid back to the left anterior abdomen. She states is associated with some dysuria. She was seen in an urgent care prior to arrival, had a urinalysis that was negative for infection and sent here to rule out stone. Patient denies ever having a kidney stone. She denies any vaginal bleeding or discharge. Denies any fever, chills or night sweats. TRAVEL OUTSIDE OF THE [place] IN LAST 30 DAYS: No - Related Data Allergies/Adverse Reactions: oxycodone [Oxycodone] Allergy (Verified 11/30/19 16:12) Past Medical History - Social History Smoking Status: Current Every Day Smoker Chew tobacco use (# tins/day): No Frequency of alcohol use: None Drug Abuse: None Family History: Reviewed & Not Pertinent Patient has suicidal ideation: No Patient has homicidal ideation: No Renal/ Medical History: Denies: Hx Peritoneal Dialysis Past Surgical History: Reports: Hx Breast Surgery - reduction 02/12/12, Hx Section - X 2 Review of Systems - Review of Systems Genitourinary: Dysuria, Flank pain -: Yes All other systems reviewed and negative Physical Exam - Vital signs Vitals: Temp Pulse Resp BP Pulse Ox 98.4 F 75 16 150/97 H 99 11/30/19 16:01 11/30/19 16:01 11/30/19 16:01 11/30/19 16:01 11/30/19 16:01 - General General appearance: Appears well, Alert In distress: None - Respiratory Respiratory status: No respiratory distress Chest status: Nontender Breath sounds: Normal Chest palpation: Normal - Cardiovascular Rhythm: Regular Heart sounds: Normal auscultation - Abdominal Inspection: Normal Distension: No distension Bowel sounds: Normal Tenderness: Tender - Left lower abdomen left lateral abdomen and left CVA area Organomegaly: No organomegaly - Back Back: CVA tenderness - Left-sided - Neurological Neuro grossly intact: Yes Cognition: Normal Orientation: AAOx4 [place] Coma Scale Eye Opening: Spontaneous [place] Coma Scale Verbal: Oriented [place] Coma Scale Motor: Obeys Commands [place] Coma Scale Total: 15 Speech: Normal - Psychological Associated symptoms: Normal affect, Normal mood - Skin Skin Temperature: Warm Skin Moisture: Dry Skin Color: Normal Course - Re-evaluation Re-evalutation: 11/30/19 18:56 CT scan negative for any acute process per radiologist. Urinalysis without evidence of UTI. Patient has a negative hCG. There is some mild blood in the urine. There is a possibility of missed stone or obstructing stone due to the contrast used for the CT. Patient was encouraged to push clear fluids and rest. Will provide short course of [place] and Zofran. We discussed supportive care measures. Her lipase is normal. She has no vaginal bleeding or discharge. She will be referred to her primary doctor for reevaluation and follow-up at this time. Repeat exam of her abdomen was benign. She states the pain is resolved. Stable and appropriate for discharge and outpatient follow-up. Advise she return here or any ER immediately with any new, persistent or worsening symptoms. She verbalized understood and agreed. - Vital Signs Vital signs: Temp Pulse Resp BP Pulse Ox 98.4 F 75 16 150/97 H 99 11/30/19 16:01 11/30/19 16:01 11/30/19 16:01 11/30/19 16:01 11/30/19 16:01 - Laboratory Result Diagrams: 11/30/19 16:26 11/30/19 16:26 Laboratory results interpreted by me: 11/30/19 11/30/19 16:26 16:26 MCV 73 L MCH 24.7 L RDW 15.7 H Creatinine < 0.05 L Glucose 117 H Total Bilirubin < 0.1 L Total Protein 8.5 H Discharge - Discharge Clinical Impression: Flank pain Hematuria Qualifiers: Hematuria type: unspecified type Qualified Code(s): R31.9 - Hematuria, unspecified Condition: Stable Disposition: HOME, SELF-CARE Instructions: Flank Pain ([facility]) Additional Instructions: Follow-up with your regular doctor in 2 to 3 days for reevaluation. Return here or any ER immediately with any new, persistent or worsening symptoms. Referrals: AJAY NOLAN MD [ACTIVE STAFF] - Follow up as needed
[2019-11-30] MEDS ORDERED: HYDROCODONE/ACETAMINOPHEN 5-325 MG (6 TAB/ER DISP) PO PRN (18:58)
[2019-11-30] MEDS ORDERED: ONDANSETRON ODT 4 MG TAB (6 TAB/ER DISP) PO PRN (18:58)
[2019-11-30 19:24] VITALS: BP 145/95
== END 2019-11-30 19:22 | disposition home or self-care (01) ==
LOC: ER 15:58
DX: R10.9 Unspecified abdominal pain (principal); R10.819 Abdominal tenderness, unspecified site; R31.9 Hematuria, unspecified; R30.0 Dysuria; F17.200 Nicotine dependence, unspecified, uncomplicated; Z88.6 Allergy status to analgesic agent; Z88.5 Allergy status to narcotic agent
CPT/HCPCS: 99284; 96361; 96374; 36415; 83690; 85025; 81025; 80053; 81001; 74177; J1170; J7030

== ENCOUNTER 2020-03-29 12:29 | Day surgery (SDC) | payer BC ==
[~2020-03-29 12:29] MED LIST: CEFAZOLIN 1 GM/D5W RTU 1 GM/50 ML RTUPB IV ONE; DEXTROSE 5%-LACTATED RINGERS 1,000 ML IV PRN
[2020-03-29 13:01] LABS: ABSOLUTE EOSINOPHILS # (AUTO) 0.1 10^3/uL (0.0-0.6); ABSOLUTE LYMPHOCYTES (AUTO) 1.3 10^3/uL (0.5-4.7); ABSOLUTE MONOCYTES (AUTO) 0.3 10^3/uL (0.1-1.4); ABSOLUTE NEUT (AUTO) 4.3 10^3/uL (1.7-8.2); BASOPHILS % (AUTO) 0.2 % (0-2); EOSINOPHILS % (AUTO) 1.5 % (0-6); HEMATOCRIT 36.8 % (36.0-47.0); HEMOGLOBIN 12.1 g/dL (12.0-15.5); LYMPHOCYTES % (AUTO) 21.6 % (13-45); MEAN CORPUSCULAR HEMOGLOBIN 23.6 pg (27.0-33.4); MEAN CORPUSCULAR HGB CONC 32.7 g/dL (32.0-36.0); MEAN CORPUSCULAR VOLUME 72 fl (80-97); MONOCYTES % (AUTO) 5.8 % (3-13); PLATELET COUNT 347 10^3/uL (150-450); RED BLOOD COUNT 5.11 10^6/uL (3.72-5.28); RED CELL DISTRIBUTION WIDTH 15.7 % (11.5-14.0); SEGMENTED NEUTROPHILS % (AUTO) 70.9 % (42-78); TOTAL CELLS COUNTED % (AUTO) 100 %
[2020-03-29] MEDS ORDERED: FENTANYL CITRATE INJ/PF 100 MCG/2 ML AMPUL ONE ×3 (15:49→20:41)
[2020-03-29] MEDS ORDERED: FENTANYL CITRATE INJ/PF 100 MCG/2 ML AMPUL IV ONE ×2 (16:00→19:45)
[2020-03-29] MEDS ORDERED: MIDAZOLAM 2 MG/2 ML INJ ONE (20:41)
[2020-03-29] MEDS ORDERED: DEXAMETHASONE SOD PHOSPHATE INJ 4 MG/1 ML VIAL ONE (20:41)
[2020-03-29] MEDS ORDERED: KETOROLAC TROMETHAMINE 60 MG/2 ML SDV ONE (20:41)
[2020-03-29] MEDS ORDERED: PROPOFOL INJ 200 MG/20 ML VIAL IV ONE (20:42)
[2020-03-29] MEDS ORDERED: ONDANSETRON HCL INJ/PF 4 MG/2 ML SDV ONE (20:42)
[2020-03-29] MEDS ORDERED: MORPHINE SULFATE 10 MG/ML INJ IV PRN (21:14)
[2020-03-29] MEDS ORDERED: DIPHENHYDRAMINE HCL 50 MG/ML VIAL IV PRN (21:14)
[2020-03-29] MEDS ORDERED: FENTANYL CITRATE INJ/PF 100 MCG/2 ML AMPUL IV PRN ×3 (21:14)
[2020-03-29] MEDS ORDERED: MEPERIDINE HCL/PF INJ 25 MG/1 ML DISP.SYRIN IV PRN (21:14)
[2020-03-29] MEDS ORDERED: PROMETHAZINE HCL INJ 25 MG/1 ML VIAL IV PRN (21:14)
[2020-03-29] MEDS ORDERED: BUPIVACAINE HCL 0.25 % INJ/PF (2.5 MG/1 ML) 30 ML VIAL ONE (21:22)
[2020-03-29] MEDS ORDERED: CEFAZOLIN INJ 1 GM VIAL ONE (21:23)
--- NOTE | 2020-03-29 21:45 | Discharge Summary ---
Discharge Summary (SDC) - Discharge Final Diagnosis: Infected right axillary sebaceous cyst Date of Surgery: 03/29/20 Discharge Date: 03/29/20 Condition: Stable Forms: ASU Anesthesia D/C Instruction, Discharge POC-Surgical Service Treatment or Instructions: Discharge home. Diet as tolerated. Activity: Nonstrenuous. Remove packing and dressing tomorrow. Okay to shower normally starting on . Follow-up with [place] [facility] in 7 to 10 days. [place] 5/325 mg p.o. every 6 hours as needed for pain. Referrals: NASIMA GZUMÁN MD [ACTIVE STAFF] - (CALL OFFICE TO FOLLOW UP IN 7-10 DAYS) Discharge Diet: As Tolerated Respiratory Treatments at Home: Deep Breathing/Coughing Discharge Activity: Balance Activity w/Rest, Walk Frequently Home Care Assistance: None Needed Report the Following to Your Physician Immediately: Shortness of Breath, Nausea, Vomiting, Increase in Pain, Fever over 101 Degrees, Unusual Bleeding, Redness, Swelling, Drainage-Foul Smelling
--- NOTE | 2020-03-29 21:49 | Operative Report ---
Nonrecallable Operative Report DATE OF SURGERY: 03/29/20 PREOPERATIVE DIAGNOSIS: Infected right axillary sebaceous cyst POSTOPERATIVE DIAGNOSIS: Same as above OPERATION: Excision of 3 cm infected right axillary sebaceous cyst SURGEON: NASIMA GUZMÁN ANESTHESIA: GA TISSUE REMOVED OR ALTERED: Right axillary sebaceous cyst COMPLICATIONS: None apparent ESTIMATED BLOOD LOSS: Minimal PROCEDURE: Drains/implants: 4 x 4 packing into the wound. Procedure in detail: After informed consent was obtained, the patient was bro ught to the operating room and laid in the supine position. The area of the axilla on the right was prepped and draped in a normal sterile fashion. An elliptical incision was created in the skin measuring 3 cm in length. Dissection was carried through the subcutaneous tissue using sharp dissection and electrocautery. The 3 cm infected sebaceous cyst was excised completely, down to healthy fatty tissue. It was removed from the patient, passed off the field, and sent to pathology. The wound was inspected. It appeared clean. Hemostasis was achieved using electrocautery. A single 3-0 Vicryl was used in the center of the wound to reapproximate the skin edges. This left the medial and lateral portions of the wound open. A 4 x 4 gauze was packed into the open portion of the wound. A dressing was then placed, and the procedure was concluded. All sponge, instrument, and needle counts were correct x2. Condition: Stable.
[2020-03-29] MEDS: FENTANYL CITRATE INJ/PF 100 MCG/2 ML AMPUL ONE ×2 (22:00→22:05)
[2020-03-29] MEDS ORDERED: HYDROCODONE/ACETAMINOPHEN 5-325 MG TABLET ONE (23:04)
[2020-03-30 00:50] VITALS: BP 131/61
== END 2020-03-29 23:20 | disposition home or self-care (01) ==
LOC: OROUT 12:29
PROVIDERS: ATTEND Surgery
DX: L72.3 Sebaceous cyst (principal); F17.210 Nicotine dependence, cigarettes, uncomplicated; Z03.818 Encounter for observation for suspected exposure to other biological agents ruled out
CPT/HCPCS: 10060; 36415; 84703; 85025; 87635; 88304 ×2; 00400; J2250; J0690 ×2; J1100; J1885; J3010; J2405; J2704; C9803; 400

== ENCOUNTER → 2020-05-31 | Outpatient (CLI) | payer BC ==
--- NOTE | 2020-05-31 16:41 | RADIOLOGY REPORT (SQ) ---
EXAM DESCRIPTION: FINGERS LEFT IMAGES COMPLETED DATE/TIME: 05/31/2020 2:52 pm REASON FOR STUDY: OTHER SPECIFIED SOFT TISSUE DISORDERS M79.89 OTHER SPECIFIED SOFT TISSUE DISORDER S COMPARISON: None. NUMBER OF VIEWS: Three views. TECHNIQUE: AP, lateral, and oblique images acquired of the left second finger. LIMITATIONS: None. FINDINGS: MINERALIZATION: Normal. BONES: No acute fracture or dislocation. No worrisome bone lesions. SOFT TISSUES: No soft tissue swelling. No foreign body. OTHER: No other significant finding. IMPRESSION: NO RADIOGRAPHIC EVIDENCE OF ACUTE INJURY. TECHNICAL DOCUMENTATION: JOB ID: [id number] 2010 [employer]- All Rights Reserved Reading location - IP/workstation name: [email or web address]
== END ==
LOC: OD 14:13
PROVIDERS: ATTEND Nurse Practitioner Family
DX: M79.89 Other specified soft tissue disorders (principal)

== ENCOUNTER → 2020-06-06 | Outpatient (CLI) | payer BC ==
--- NOTE | 2020-06-06 16:21 | RADIOLOGY REPORT (SQ) ---
EXAM DESCRIPTION: U/S EXTREMITY NONVASCULAR LTD IMAGES COMPLETED DATE/TIME: 06/06/2020 4:09 pm REASON FOR STUDY: M79.89 OTHER SPECIFIED SOFT TISSUE DISORDERS M79.89 OTHER SPECIFIED SOFT TISSUE D ISORDERS COMPARISON: None. TECHNIQUE: Dynamic and static grayscale images acquired of the localized site of clinical concern an d recorded on PACS. Additional selected color Doppler and spectral images recorded. SITE OF CONCERN: Left index finger. LIMITATIONS: None. FINDINGS: In the area of concern there is a hypoechoic lesion measuring 1.0 x 0.4 x 0.6 cm. Irregul ar margins. No internal flow on color Doppler. IMPRESSION: Solid lesion not further characterized. No evidence of abscess. TECHNICAL DOCUMENTATION: JOB ID: [id number] 2010 [employer]- All Rights Reserved Reading location - IP/workstation name: [email or web address]
== END ==
LOC: RAD 15:42
PROVIDERS: ATTEND Nurse Practitioner Family
DX: M79.89 Other specified soft tissue disorders (principal)
CPT/HCPCS: 76882

== ENCOUNTER → 2020-06-19 | Outpatient (CLI) | payer BC ==
[2020-06-19 16:24] LABS: ABSOLUTE EOSINOPHILS # (AUTO) 0.1 10^3/uL (0.0-0.6); ABSOLUTE LYMPHOCYTES (AUTO) 1.6 10^3/uL (0.5-4.7); ABSOLUTE MONOCYTES (AUTO) 0.3 10^3/uL (0.1-1.4); ABSOLUTE NEUT (AUTO) 4.7 10^3/uL (1.7-8.2); BASOPHILS % (AUTO) 0.3 % (0-2); EOSINOPHILS % (AUTO) 0.9 % (0-6); HEMATOCRIT 33.7 % (36.0-47.0); HEMOGLOBIN 11.1 g/dL (12.0-15.5); LYMPHOCYTES % (AUTO) 23.4 % (13-45); MEAN CORPUSCULAR HEMOGLOBIN 22.9 pg (27.0-33.4); MEAN CORPUSCULAR HGB CONC 32.9 g/dL (32.0-36.0); MEAN CORPUSCULAR VOLUME 70 fl (80-97); MONOCYTES % (AUTO) 4.7 % (3-13); PLATELET COUNT 379 10^3/uL (150-450); RED BLOOD COUNT 4.85 10^6/uL (3.72-5.28); RED CELL DISTRIBUTION WIDTH 19.2 % (11.5-14.0); SEGMENTED NEUTROPHILS % (AUTO) 70.7 % (42-78); TOTAL CELLS COUNTED % (AUTO) 100 %; WHITE BLOOD COUNT 6.7 10^3/uL (4.0-10.5)
[2020-06-19 16:42] LABS: URIC ACID 4.1 mg/dL (2.5-7.0)
[2020-06-19 16:45] LABS: C-REACTIVE PROTEIN < 5.0 mg/L (<10.0)
[2020-06-19 17:10] LABS: ERYTHROCYTE SEDIMENTATION RATE 32 mm/hr (0-20)
== END ==
LOC: OD 15:08
PROVIDERS: ATTEND Orthopaedic Surgery
DX: L50.9 Urticaria, unspecified (principal); R22.32 Localized swelling, mass and lump, left upper limb
CPT/HCPCS: 36415; 83520; 84550; 85025; 85652; 86038; 86140; 86200; 86376; 86431; 86800

== ENCOUNTER → 2020-06-22 | Outpatient (CLI) | payer BC ==
--- NOTE | 2020-06-22 14:40 | RADIOLOGY REPORT (SQ) ---
EXAM DESCRIPTION: MRI LT UPPER EXTREMITY WITHOUT IMAGES COMPLETED DATE/TIME: 06/22/2020 12:35 pm REASON FOR STUDY: R22.32 LOCALIZED SWELLING, MASS AND LUMP, LEFT UPPER LIMB R22.32 LOCALIZED SWELLI NG, MASS AND LUMP, LEFT UPPER LIMB COMPARISON: None. TECHNIQUE: Multiplanar imaging of the left index finger to include fat and fluid sensitive sequences . LIMITATIONS: None. FINDINGS: BONE MARROW: Normal. SOFT TISSUES: There is abnormal low T1 and high T2 signal the flexor tendon from the volar plate of the head of the proximal 2nd phalanx. The more proximal flexor tendon has normal relations hip to the volar margin of the phalanx. No underlying mass is identified. OTHER: No other significant finding. IMPRESSION: Partial rupture of the A2 malka. TECHNICAL DOCUMENTATION: JOB ID: [id number] 2010 [employer]- All Rights Reserved Reading location - IP/workstation name: [email or web address]
== END ==
LOC: RAD 11:51
PROVIDERS: ATTEND Orthopaedic Surgery
DX: S56.116A Strain of flexor muscle, fascia and tendon of left ring finger at forearm level, initial encounter (principal); X58.XXXA Exposure to other specified factors, initial encounter